=== PATIENT | female | born 1955 | race Caucasian/White ===

== ENCOUNTER → 2016-08-23 | Outpatient (CLI) | payer BC ==
[~2016-08-23] MED LIST: CYANOCOBAL1000 MCG/M INJ; LORTAB 7.51 TAB 7.5/ PO; PROGESTERONE PO; VIT B-12 PO; WELLBUTRIN PO
--- NOTE | ~2016-08-23 | CR63 ---
[facility] A Service of [facility] & [facility] RADIOLOGY TEXT RESULTS PATIENT: ANGELES RINCON LOCATION: [facility] : 55 UNIT #: [id number] AGE: [address]: Lindsey Alves MD SEX: F ORDER DR: [id number] [facility] [address] [facility]. [place], [place] [address] [id number] O MR#: [id number] Acc #: [id number] NAME: ANGELES RINCON : 1955 SEX: F STUDY DATE/TIME: 08/23/2016 10:34 UNIT: [facility] ROOM: STUDY DESCRIPTION: CR Chest 2 View Attending Physician: Lindsey Alves M.D. Referring Physician: Lindsey Alves M.D. Ordering Physician: Lindsey Alves M.D. Primary Care Physician: Lindsey Alves M.D. MEDICAL IMAGING REPORT This report is preliminary unless electronic signature is present EXAM Two-view chest INDICATIONS Intermittent chest pain for the past month PROCEDURE Frontal lateral views of the chest 01/28/2011 FINDINGS Heart size normal. Lungs are clear. No pleural fluid or pneumothorax. IMPRESSION No active process. Dictated by... Odilon Carney M.D. THIS IS AN ELECTRONICALLY VERIFIED REPORT Odilon Carney M.D. at 08/26/2016 7:45 AM EED/to TD: 08/23/2016 18:33 JOB #: [id number] MEDICAL IMAGING REPORT Page 1 of 1 COPY
== END | disposition home or self-care (01) ==
LOC: CRAD 10:18
DX: R07.9 Chest pain, unspecified (principal)
CPT/HCPCS: 71020

== ENCOUNTER → 2016-08-28 | Outpatient (CLI) | payer BC ==
--- NOTE | ~2016-08-28 | ST ---
Unit #: [id number] #: [id number] Patient: ANGELES RINCON [id number] [address] [address] [id number] O MR#: [id number] NAME: ANGELES RINCON : 1955 SEX: F STUDY DATE/TIME: 08/28/2016 UNIT: [facility] ROOM: STUDY DESCRIPTION: STRESS TEST Attending Physician: Lindsey Alves M.D. Referring Physician: Lindsey Alves M.D. Primary Care Physician: Lindsey Alves M.D. CARDIOLOGY REPORT EXAM Stress ECG INDICATION Chest pain. SUMMARY The patient exercised on a Jason protocol to maximal effort. Patient completed 5 minutes 18 seconds of exercise. Heart rate increased from 62 to 162 (108%) and blood pressure increased 119/83 to 150/100. The rest and stress ECG shows no diagnostic ST shifts, no significant dysrhythmias, and no heart block. IMPRESSION 1. Stress ECG shows no ischemia. 2. Moderately severe deconditioning based on the patient's age. 3. Heart rate response reflects significant deconditioning. 4. Normal blood pressure response. Dictated by... Sammi Stearns/nabil TD: 08/28/2016 22:18 JOB #: [id number] CARDIOLOGY REPORT Page 1 of 1 X Bart Shipman MD CARDIOLOGY REPORT
== END | disposition home or self-care (01) ==
LOC: CEKG 08:46
DX: R07.9 Chest pain, unspecified (principal)
CPT/HCPCS: 93017